=== PATIENT | female | born 1975 | race American Indian/Alaskan Native ===

== ENCOUNTER 2019-04-24 21:01 | Emergency (ER) | payer OTHER ==
[2019-04-24 22:55] LABS: Basophils # (Auto) 0.1 K/mm3 (0.0-0.1); Basophils % (Auto) 0.3 % (0.0-1.8); Eosinophils # (Auto) 0.2 K/mm3 (0.0-0.4); Eosinophils % (Auto) 1.3 % (0.0-4.3); Hematocrit 30.7 % (30.3-42.9); Hemoglobin 9.8 gm/dl (10.1-14.3); Lymphocytes # (Auto) 1.9 K/mm3 (1.2-5.4); Lymphocytes % (Auto) 10.5 % (13.4-35.0); Mean Corpuscular HGB Conc 32 % (30-34); Mean Corpuscular Volume 83 fl (79-97); Monocytes # (Auto) 1.3 K/mm3 (0.0-0.8); Monocytes % (Auto) 6.9 % (0.0-7.3); Platelet Count 302 K/mm3 (140-440); Red Cell Distribution Width 18.8 % (13.2-15.2)
[2019-04-24 23:12] LABS: Albumin 4.2 g/dL (3.9-5); Calcium 9.9 mg/dL (8.4-10.2)
[2019-04-25 03:13] LABS: Bacteria,Urine 1+ /HPF (Negative); Bilirubin,Urine NEG (Negative); Blood,Urine NEG (Negative); Color,Urine Yellow (Yellow); Mucus,Urine 1+ /HPF; Protein,Urine <15 mg/dL mg/dL (Negative); Urobilinogen,Urine < 2.0 mg/dL (<2.0)
[2019-04-25] MEDS ORDERED: NACL 0.9% 1000 ML 1,000 ML IV ONE (05:07)
[2019-04-25] MEDS ORDERED: ZOSYN/NS 4.5GM/100ML 4.5 GM/100 ML VIAL IV ONE (05:07)
[2019-04-25 05:43] LABS: HCG Qualitative,Urine Negative (Negative)
--- NOTE | 2019-04-25 05:49 | Emergency Department Report ---
ED Abdominal Pain HPI - General Chief Complaint: Abdominal Pain Stated Complaint: LOWER ABD/BACK PAIN Time Seen by Provider: 04/25/19 01:33 Source: patient Mode of arrival: Ambulatory Limitations: No Limitations - History of Present Illness Initial Comments: 44-year-old female presents to ED with low abdominal pain 3 days. Patient states pain started in the right lower quadrant. Reports associated back pain. Denies dysuria, hematuria, vaginal discharge or vaginal bleeding. She reports urinary frequency. Reports nausea, no vomiting. MD Complaint: abdominal pain -: days(s) (3) Location: RLQ Migration to: suprapubic Severity: moderate Severity scale (0 -10): 4 Quality: cramping, sharp Consistency: constant Improves With: nothing Worsens With: nothing Associated Symptoms: nausea, fever. denies: vomiting, diarrhea, dysuria, hematuria - Related Data Allergies Allergy/AdvReac Type Severity Reaction Status Date / Time No Known Allergies Allergy Unverified 04/24/19 21:04 ED Review of Systems ROS: Stated complaint: LOWER ABD/BACK PAIN Other details as noted in HPI Comment: All other systems reviewed and negative Constitutional: fever Gastrointestinal: abdominal pain, nausea. denies: vomiting, diarrhea Genitourinary: frequency. denies: dysuria, hematuria, discharge ED Past Medical Hx - Past Medical History Previous Medical History?: No - Surgical History Past Surgical History?: No - Social History Smoking Status: Current Every Day Smoker Substance Use Type: None ED Physical Exam - General Limitations: No Limitations General appearance: alert, in no apparent distress, obese - Head Head exam: Present: atraumatic, normocephalic - Eye Eye exam: Present: normal appearance - ENT ENT exam: Present: mucous membranes moist - Neck Neck exam: Present: normal inspection - Respiratory Respiratory exam: Present: normal lung sounds bilaterally. Absent: respiratory distress - Cardiovascular Cardiovascular Exam: Present: regular rate, normal rhythm - GI/Abdominal GI/Abdominal exam: Present: soft, tenderness (RLQ and suprapubic tenderness present). Absent: distended - Extremities Exam Extremities exam: Present: normal inspection - Neurological Exam Neurological exam: Present: alert, oriented X3 - Psychiatric Psychiatric exam: Present: normal affect, normal mood - Skin Skin exam: Present: warm, dry, intact, normal color. Absent: rash ED Course Vital Signs 04/24/19 04/25/19 04/25/19 21:04 01:53 02:35 Temperature 101.1 F H 98.7 F Pulse Rate 120 H 91 H Respiratory 18 20 Rate Blood Pressure 158/100 Blood Pressure 137/91 [Left] O2 Sat by Pulse 99 97 Oximetry 04/25/19 04/25/19 04/25/19 02:46 03:16 03:30 Temperature Pulse Rate 88 93 H 88 Respiratory 17 14 18 Rate Blood Pressure 133/83 133/83 133/83 Blood Pressure [Left] O2 Sat by Pulse 99 98 99 Oximetry 04/25/19 04/25/19 04/25/19 03:46 04:00 04:16 Temperature Pulse Rate 86 85 88 Respiratory 12 18 19 Rate Blood Pressure 133/83 109/61 109/61 Blood Pressure [Left] O2 Sat by Pulse 99 98 99 Oximetry 04/25/19 04/25/19 04/25/19 04:30 04:46 05:00 Temperature Pulse Rate 87 85 87 Respiratory 24 17 16 Rate Blood Pressure 109/61 109/61 109/61 Blood Pressure [Left] O2 Sat by Pulse 98 99 99 Oximetry 04/25/19 04/25/19 04/25/19 05:16 05:30 05:46 Temperature Pulse Rate 83 91 H Respiratory 19 14 Rate Blood Pressure 109/61 109/61 109/61 Blood Pressure [Left] O2 Sat by Pulse 99 99 99 Oximetry 04/25/19 04/25/19 05:56 06:00 Temperature 98.2 F Pulse Rate 90 96 H Respiratory 18 10 L Rate Blood Pressure 136/90 Blood Pressure 123/64 [Left] O2 Sat by Pulse 100 99 Oximetry - Consultations Consultation #1: 04/25/19 05:47 Spoke w/ Dr Jared Nolan, ER physician at [facility]. Accepts transfer to ED since we have no CT capabilities. ED Medical Decision Making - Lab Data Result diagrams: 04/24/19 22:35 04/24/19 22:35 - Medical Decision Making 44 yo F with 3 day hx of lower abdominal pain, back pain, fever, nausea. Initial temp of 101, and tachycardic. Vitals improved without meds. Pt has RLQ and suprapubic tenderness on exam. No CVA tenderness. WBCs 18, UA negative. Concern for intraabdominal pathology such as appendictis, however, no CT capability at this hospital currently b/c no tech scheduled. Spoke with US tech, unable to assess for appendicitis via US on adults. Pt will be transferred to [facility] for further evaluation. - Differential Diagnosis UTI, appendicitis, colitis Critical care attestation.: If time is entered above; I have spent that time in minutes in the direct care of this critically ill patient, excluding procedure time. ED Disposition Clinical Impression: Fever, Abdominal pain Disposition: [id number]/TX-[id number] ANOTHER TYPE HLTHCARE Is pt being admited?: No Condition: Stable Instructions: Abdominal Pain (ED) Referrals: ALLYSON FRY MD [Primary Care Provider] - 3-5 Days Time of Disposition: 05:48
[2019-04-25 07:01] VITALS: BP 136/90
== END 2019-04-25 07:22 | disposition other institution (70) ==
LOC: ED 21:01
DX: R10.31 Right lower quadrant pain (principal); M54.9 Dorsalgia, unspecified; R11.0 Nausea; F17.200 Nicotine dependence, unspecified, uncomplicated; R50.9 Fever, unspecified
CPT/HCPCS: 36415; 80053; 81001; 81025; 85025; 96365; 99283; J2543; J7030